=== PATIENT | female | born 1960 | race Caucasian/White ===

== ENCOUNTER 2017-03-09 19:01 | Inpatient (IN) ==
[2017-03-09] MEDS ORDERED: 0.9 % Sodium Chloride 1,000 ML IVC ONE ×2 (19:21→20:12)
--- NOTE | 2017-03-09 19:30 | Emergency Department Note ---
Disposition Clinical Impression: DKA (diabetic ketoacidoses) Qualifiers: Diabetes mellitus type: type 1 Diabetes mellitus complication detail: without coma Qualified Code(s): E10.10 - Type 1 diabetes mellitus with ketoacidosis without coma Disposition: Admitted As Inpatient Condition: Good Referrals: Sushil Mccrary DO [Primary Care Provider] - Forms: ED Satisfaction Letter General Adult HPI - General Chief complaint: ED Nausea/Vomiting/Diarrhea Stated complaint: hyperglycemia Time Seen by Provider: 03/09/17 19:04 Source: EMS Mode of arrival: ambulatory Limitations: no limitations Nursing Notes Reviewed: Yes Vital Signs Reviewed: Yes - History of Present Illness HPI Narrative: Patient presents for evaluation of elevated blood sugars. She states she has had elevated blood sugars 2 days. She came in today after the development of nausea and vomiting. Nausea started earlier today; vomiting with no blood or bile present. Has had this in the past. Concern for DKA. Patient is a insulin -dependent diabetic with an insulin pump. She states the insulin pump has been functioning properly. Patient has not had fevers or chills or productive cough or urinary symptoms. Patient has not had chest pain. No specific etiology for elevated glucose found at this time. Will perform lab work checking for DKA and likely admission Pain Scale: 0 - Related Data Allergies Allergy/AdvReac Type Severity Reaction Status Date / Time codeine AdvReac Hypertensio Verified 03/09/17 20:37 n Review of Systems: CONSTITUTIONAL: elevated blood sugarNo weight loss, fever, chills, weakness or fatigue. HEENT: Eyes: No visual changes. Ears, Nose, Throat: No hearing loss, difficulty talking or unable to swallow. SKIN: No rash or itching. CARDIOVASCULAR: No chest pain, chest pressure or chest discomfort. No palpitations or edema. RESPIRATORY: No shortness of breath, cough or sputum. GASTROINTESTINAL: Nausea and vomiting GENITOURINARY: No burning on urination or hematuria. NEUROLOGICAL: No headache, dizziness, syncope, paralysis, ataxia, numbness or tingling in the extremities. No change in bowel or bladder control. MUSCULOSKELETAL: No muscle pain, back pain, joint pain or stiffness. 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 history - Social History Smoking Status: Current every day smoker Smokeless Tobacco Status: No Alcohol use: Reports: none Drug use: Reports: none Physical Exam General: Well appearing, nontoxic, no acute distress Head: Normocephalic Atraumatic Eyes: PERRL, EOMI ENT: Airway patent, no stridor Neck: supple, no meningismus Chest: Lungs clear to auscultation bilateral Cardiac: Regular rate and rhythm, no murmurs, rubs or gallops Abdomen: soft, nontender, nondistended; no guarding, rebound, or tenderness to percussion Musculoskeletal: Calves symmetric, nontender, no palpable cord Skin: No rash, normal skin tone Neuro: Alert and Oriented to person, place, and time; No focal deficit, CN 2-12 symmetric and intact - General Limitations: no limitations General appearance: alert, in no apparent distress Course - Reevaluation(s) Reevaluation #1: elevated glucose. acidosis. ketones and troponin pending. Insulin drip started. Potasium repacement started. Vital Signs Temperature 97.4 F L 03/09/17 19:04 Pulse Rate 108 03/09/17 19:04 Respiratory Rate 18 03/09/17 19:04 Blood Pressure 137/84 03/09/17 19:04 O2 Sat by Pulse Oximetry 96 03/09/17 19:04 Temperature 97.4 F L 03/09/17 19:04 Pulse Rate 107 03/09/17 20:45 Respiratory Rate 24 03/09/17 20:45 Blood Pressure 118/44 03/09/17 20:45 O2 Sat by Pulse Oximetry 100 03/09/17 20:45 Oxygen Delivery Oxygen Delivery Nasal Cannula Medical Decision Making - Medical Records Medical records reviewed: Yes I reviewed the patient's medical records. - Lab Data Lab results reviewed: Yes I reviewed the patient's lab results. Result diagrams: 03/09/17 19:48 03/09/17 19:48 - Radiology Data Radiology results reviewed: Yes I reviewed the patient's radiology results. - EKG Data EKG #1 EKG attestation: Yes I reviewed and interpreted this EKG. EKG results narrative: EKG shows sinus tachycardia with ventricular rate of 106. MD 162. QRS 77. QTC 394. Patient has no significant ST elevations or depressions. Patient's EKG unchanged from 07/05/13. Critical Care Time Critical Care Time: Yes Total Critical Care Time: 33 Attestation: Patient is acidotic, hyperglycemic, requiring fluid resuscitation and an insulin drip Attestation Statement - Attestation Attestation: DR Barry note: Patient was seen in conjunction with resident Dr. Portillo; please see her charting for complete documentation. I spent [id number] time with the patient and agree with the patient's treatment and disposition. Pt is in dka, but improved during her ER stay. She noted her visualized days ago but does not remember checking them in the last 4-5 days. States his third episode began last 13 years. Unclear if her insulin pump was working on a functioning as it was was to be 4 days ago. The admitted hospitalist and stabilized improved condition. Patient was notably acidotic. Admitted to the hospitalist at 9 PM
[2017-03-09 19:41] LABS: Bilirubin,Urine Negative (Negative); Blood,Urine Negative (Negative); Clarity,Urine Clear (Clear); Color,Urine Yellow (Yellow); Glucose,Urine (UA) >=1000 mg/dL (Normal); Ketones,Urine 80 mg/dL (Negative); Leukocyte Esterase,Urine Negative (Negative); Nitrite,Urine Negative (Negative); Protein,Urine Negative (Neg-Trace); Specific Gravity,Urine 1.028 (1.010-1.025); Urobilinogen,Urine Normal (Normal)
[2017-03-09 19:59] LABS: Basophils # 0.1 K/mcL (0.0-0.2); Basophils % 0.6 %; Hematocrit 35.7 % (35.3-44.9); Hemoglobin 12.3 g/dL (11.5-15.4); Immature Granulocytes % 0.7 % (0-4); Lymphocytes # 1.1 K/mcL (0.6-4.6); Lymphocytes % 5.1 %; Mean Corpuscular HGB Conc 34.5 g/dL (31.6-35.5); Mean Corpuscular Hemoglobin 31.6 pg (28.0-33.3); Mean Corpuscular Volume 91.8 fL (83.0-100.0); Mean Platelet Volume 9.1 fL (9.4-12.4); Monocytes # 0.9 K/mcL (0.0-1.3); Monocytes % 4.3 %; Neutrophils # 19.5 K/mcL (1.6-8.9); Platelet Count 446 K/mcL (140-400); Red Blood Count 3.89 M/mcL (3.82-4.97); Segmented Neutrophils % 89.3 %
[2017-03-09 20:07] LABS: VBG HCO3 9 mEq/L (21-27); VBG PCO2 29 mmHg (41-51); VBG PH 7.11 pH Units (7.32-7.42); VBG PO2 64 mmHg (25-50)
[2017-03-09] MEDS ORDERED: Ondansetron 4 MG/2 ML VIAL IVP ONE (20:12)
[2017-03-09 20:13] LABS: Alanine Aminotransferase 17 Units/L (0-55); Albumin/Globulin Ratio 0.8 (1.1-2.2); Alkaline Phosphatase 152 Units/L (38-126); Aspartate Amino Transferase 16 Units/L (5-34); BUN/Creatinine Ratio 17 (6-26); Bilirubin,Total 0.9 mg/dL (0.2-1.2); Blood Urea Nitrogen 27 mg/dL (7-20); Calcium 10.2 mg/dL (8.6-10.8); Chloride 89 mEq/L (98-109); Globulin 4.8 g/dL (2.4-3.5); Magnesium 2.2 mg/dL (1.6-2.6); Osmolality,Calculated 299 (280-300); Potassium 4.9 mEq/L (3.5-4.5); Sodium 123 mEq/L (136-145); Total Protein 8.8 g/dL (6.0-8.3); eGFR For African Americans 41 (> 60); eGFR For Non-African Americans 34 (> 60)
[2017-03-09] MEDS ORDERED: Ondansetron 4 MG/2 ML VIAL ONE (20:13)
[2017-03-09 20:16] LABS: Carbon Dioxide 8 mEq/L (19-29); Glucose 788 mg/dL (70-99)
[2017-03-09] MEDS ORDERED: *HR* Dextrose 50 % in Water (Syg) 50 ML SYRINGE IVP PRN ×3 (20:17→23:03)
[2017-03-09 20:30] LABS: Beta-Hydroxybutyric Acid > 2.00 mmol/L (0.02-0.27)
[2017-03-09] MEDS ORDERED: Insulin Human Regular 100 UNIT in 0.9 % Sodium Chloride 100 ML IVC SCH ×2 (20:30→23:15)
[2017-03-09 20:48] LABS: Thyroid Stimulating Hormone 0.594 mcIU/mL (0.350-4.840)
[2017-03-09] MEDS ORDERED: D5% in 0.45% NACL 1,000 ML IVC PRN ×2 (21:21→23:03)
[2017-03-09] MEDS ORDERED: Naloxone 0.4 MG/ML INJ IVP PRN (21:24)
[2017-03-09] MEDS ORDERED: Ondansetron 4 MG/2 ML VIAL IVP PRN (21:27)
[2017-03-09] MEDS ORDERED: 0.9 % Sodium Chloride 1,000 ML IVC SCH (21:30)
--- NOTE | 2017-03-09 21:32 | Internal Med History&Physical ---
Date of Encounter: 03/09/17 Time of Encounter: 21:29 Assessment and Plan (1) DKA (diabetic ketoacidoses) Current visit: Yes Status: Acute admit with IVF, bolus for volume depletion Insulin gtt with close CBG monitoring consult endocrine, senior health educator to check insulin pump and adjust insulin pump dose pending hospital course Qualifiers: Diabetes mellitus type: type 1 Diabetes mellitus complication detail: without coma Qualified Code(s): E10.10 - Type 1 diabetes mellitus with ketoacidosis without coma (2) HTN (hypertension), benign Current visit: Yes Status: Acute continue med (3) Hypothyroid Current visit: Yes Status: Acute continue synthroid Qualifiers: Hypothyroidism type: acquired Qualified Code(s): E03.9 - Hypothyroidism, unspecified Internal Medicine - H&P: HPI Chief complaint: High CBG, nausea, fatigue, generalized weakness, fast HR History of present illness: Ms. Lloyd is a 56 year old female IDDM who presents with DKA. She has been using insulin pump for the last 4 years or so and is established with endocrinology locally. She presents after having approx 30 hours of high CBG on her glucometer that is off the scale that is associatied with nausea/non -bloody emesis since 4 pm with prodromal fatigue, generalized weakness, fast HR in the last 24 hours. Her pump delivers around 35-30 U insulin q24 hours. She denies chills/fever/UTI/Respiratory symptoms. ekg reviewed by self with rate 106, NSR XR/XR chest 2V IMPRESSION: No acute cardiopulmonary abnormality. Past Med Surg Social Fam HX - Past Medical History Medical history: diabetes, hypertension Psychiatric history: depression - Past Surgical History Surgical History: no surgical history - Social History Smoking Status: Current every day smoker Smokeless Tobacco Status: No Alcohol use: none Drug use: none - Additional Family History Additional family history: HTN Internal Medicine - H&P: Meds Amitriptyline [Elavil] 25 mg PO DAILY 03/09/17 [History] Aspirin [Lo-Dose Aspirin EC] 81 mg PO DAILY 03/09/17 [History] Gabapentin [Neurontin] 600 mg PO TID 03/09/17 [History] Levothyroxine [Synthroid] 100 mcg PO QAM 03/09/17 [History] Lisinopril [Zestril] 20 mg PO DAILY 03/09/17 [History] Metoprolol Succinate 50 mg PO DAILY 03/09/17 [History] Pravastatin Sodium [Pravachol] 40 mg PO HS 03/09/17 [History] Subcutaneous Insulin Pump [T:Slim] 1 each MC AD 03/09/17 [History] amLODIPine [Norvasc] 5 mg PO DAILY 03/09/17 [History] 3 Allergy/AdvReac Type Severity Reaction Status Date / Time codeine AdvReac Hypertensio Verified 03/09/17 20:37 n All Systems PM: A 10-system review of systems was performed and is negative for pertinent findings except as documented above in the HPI. Review of systems: ROS 14 point review of systems reviewed as best as possible given presentation. Pertinent positive or negative as per HPI or otherwise reviewed as negative - Constitutional Vitals: Temp Pulse Resp BP Pulse Ox 97.4 F L 107 24 118/44 100 03/09/17 19:04 03/09/17 20:45 03/09/17 20:45 03/09/17 20:45 03/09/17 20:45 Exam: General - AAO x 3 Psych - Appropriate affect/speech. No agitation Eyes - SHYLA. Eye lids intact. No scleral icterus Neuro - No gross peripheral or central neuro deficits on inspection Heart - Sinus tachycardia. S1 and S2 present. No added HS/murmurs appreciated. No elevated JVD appreciated. Lung - Adequate air entry b/l, No crackles/wheezes appreciated GI - Soft, non-tender. No hepatosplenomegaly/ascites. BS+ - No CVA/suprapubic tenderness or palpable bladder distension Skin - Intact. No rash/petechiae/ecchymosis. Warm extremities Internal Med - H&P Results - Labs CBC & Chem 7: 03/09/17 19:48 03/09/17 19:48 Labs: Short CBC 03/09/17 Range/Units 19:48 WBC 21.8 H (4.3-11.1) K/mcL Hgb 12.3 (11.5-15.4) g/dL Hct 35.7 (35.3-44.9) % Plt Count 446 H (140-400) K/mcL Neutrophils # 19.5 H (1.6-8.9) K/mcL BMP 03/09/17 19:48 Sodium 123 L Potassium 4.9 H Chloride 89 L Carbon Dioxide 8 L* BUN 27 H Creatinine 1.58 H Glucose 788 H* Calcium 10.2 Cardiac Enzymes 03/09/17 Range/Units 19:48 Troponin I 0.00 (0-0.03) ng/mL Liver Function 03/09/17 Range/Units 19:48 Total Bilirubin 0.9 (0.2-1.2) mg/dL AST 16 (5-34) Units/L ALT 17 (0-55) Units/L Alkaline Phosphatase 152 H (38-126) Units/L Albumin 4.0 (3.5-5.0) g/dL Urine 03/09/17 Range/Units 19:27 Urine Color Yellow (Yellow) Urine Clarity Clear (Clear) Urine pH 6.0 (5.0-8.0) pH Units Ur Specific Warner 1.028 H (1.010-1.025) Urine Protein Negative (Neg-Trace) mg/dL Urine Glucose (UA) >=1000 H (Normal) mg/dL - ABG Interpretation ABG results: 03/09/17 20:01 VBG pH 7.11 L* VBG pCO2 29 L VBG pO2 64 H VBG HCO3 9 L - Impressions ITS Impressions Chest X-Ray 03/09/17 19:21 IMPRESSION: No acute cardiopulmonary abnormality. D/ / aG Colon / Ga Colon Interpreting Provider: Ga Colon
[2017-03-09] MEDS ORDERED: 0.9 % Sodium Chloride w KCl 20 MEQ/1,000 ML MLS IVC ONE (22:44)
[2017-03-09] MEDS: 0.9 % Sodium Chloride 1,000 ML IVC SCH ×2 (22:51→22:53)
[2017-03-09] MEDS ORDERED: Insulin Regular, Human 100 UNIT/ML IV PRN (23:03)
[2017-03-09] MEDS ORDERED: 0.45 % Sodium Chloride w/KCl 20 MEQ/1,000 ML MLS IVC PRN ×2 (23:15)
[2017-03-09] MEDS ORDERED: 0.9 % Sodium Chloride 1,000 ML IVC PRN ×2 (23:15)
[2017-03-10] MEDS: Insulin Human Regular 100 UNIT in 0.9 % Sodium Chloride 100 ML IVC SCH ×2 (00:20→07:50)
[2017-03-10] MEDS ORDERED: 0.9 % Sodium Chloride w KCl 20 MEQ/1,000 ML MLS IVC ONE (00:47)
[2017-03-10 00:53] LABS: BUN/Creatinine Ratio 20 (6-26); Blood Urea Nitrogen 22 mg/dL (7-20); Calcium 8.8 mg/dL (8.6-10.8); Carbon Dioxide 13 mEq/L (19-29); Glucose 349 mg/dL (70-99); Osmolality,Calculated 287 (280-300); Potassium 4.4 mEq/L (3.5-4.5); Sodium 130 mEq/L (136-145); eGFR For African Americans > 60 (> 60); eGFR For Non-African Americans 50 (> 60)
[2017-03-10 00:54] LABS: Chloride 105 mEq/L (98-109)
[2017-03-10] MEDS: D5% in 0.45% NACL w KCl 20 MEQ/1,000 ML MLS IVC PRN ×2 (04:01→07:57)
[2017-03-10 04:45] LABS: Basophils # 0.1 K/mcL (0.0-0.2); Basophils % 0.3 %; Hematocrit 27.6 % (35.3-44.9); Immature Granulocytes % 0.5 % (0-4); Lymphocytes # 2.9 K/mcL (0.6-4.6); Lymphocytes % 17.3 %; Mean Corpuscular HGB Conc 35.5 g/dL (31.6-35.5); Mean Corpuscular Hemoglobin 31.4 pg (28.0-33.3); Mean Corpuscular Volume 88.5 fL (83.0-100.0); Mean Platelet Volume 8.5 fL (9.4-12.4); Monocytes # 0.9 K/mcL (0.0-1.3); Monocytes % 5.6 %; Neutrophils # 12.7 K/mcL (1.6-8.9); Platelet Count 314 K/mcL (140-400); Red Blood Count 3.12 M/mcL (3.82-4.97); Red Cell Distribution Width 13.2 % (11.5-14.5); Segmented Neutrophils % 76.3 %
[2017-03-10 04:46] LABS: Hemoglobin 9.8 g/dL (11.5-15.4)
[2017-03-10 04:51] LABS: BUN/Creatinine Ratio 18 (6-26); Blood Urea Nitrogen 17 mg/dL (7-20); Calcium 8.6 mg/dL (8.6-10.8); Carbon Dioxide 17 mEq/L (19-29); Chloride 110 mEq/L (98-109); Glucose 149 mg/dL (70-99); Osmolality,Calculated 278 (280-300); Potassium 3.9 mEq/L (3.5-4.5); Sodium 132 mEq/L (136-145); eGFR For African Americans > 60 (> 60); eGFR For Non-African Americans > 60 (> 60)
[2017-03-10 04:55] LABS: Hemoglobin A1C 8.3 %
[2017-03-10] MEDS ORDERED: *HR* Enoxaparin 40 MG/0.4 ML SYRINGE SQ SCH (06:00)
[2017-03-10] MEDS ORDERED: Lisinopril 20 MG TABLET PO SCH (09:00)
[2017-03-10] MEDS ORDERED: Gabapentin 300 MG CAPSULE PO SCH (09:00)
[2017-03-10] MEDS ORDERED: amLODIPine 5 MG TABLET PO SCH (09:00)
[2017-03-10] MEDS ORDERED: Aspirin Enteric Coated 81 MG Tablet PO SCH (09:00)
[2017-03-10] MEDS ORDERED: Metoprolol XL (24 HR) Succ 50 MG TAB.ER.24H PO SCH (09:00)
[2017-03-10 09:18] LABS: Alanine Aminotransferase 11 Units/L (0-55); Albumin 2.9 g/dL (3.5-5.0); Albumin/Globulin Ratio 0.8 (1.1-2.2); Alkaline Phosphatase 99 Units/L (38-126); Aspartate Amino Transferase 18 Units/L (5-34); BUN/Creatinine Ratio 18 (6-26); Bilirubin,Total 0.4 mg/dL (0.2-1.2); Blood Urea Nitrogen 15 mg/dL (7-20); Calcium 8.8 mg/dL (8.6-10.8); Carbon Dioxide 18 mEq/L (19-29); Chloride 108 mEq/L (98-109); Globulin 3.8 g/dL (2.4-3.5); Glucose 101 mg/dL (70-99); Osmolality,Calculated 271 (280-300); Potassium 3.7 mEq/L (3.5-4.5); Sodium 130 mEq/L (136-145); Total Protein 6.7 g/dL (6.0-8.3); eGFR For African Americans > 60 (> 60); eGFR For Non-African Americans > 60 (> 60)
--- NOTE | 2017-03-10 09:33 | Internal Med Progress Note ---
Date of Encounter: 03/10/17 Time of Encounter: 09:15 - Assessment and plan (1) DKA (diabetic ketoacidoses) Current Visit: Yes Status: Acute Assessment and plan: Serum glucose this AM: 101 HgbA1c 8.3 (appears to be @ baseline) NPO Receiving IVF for volume repletion (20 mEQ KCl in D5-1/2NS @ 250mL/hr) Insulin gtt running (humulin in NS @ 0.29 unit/kg/hr) critical care educator and endocrinology consulted--recommendations appreciated Qualifiers: Diabetes mellitus type: type 1 Diabetes mellitus complication detail: without coma Qualified Code(s): E10.10 - Type 1 diabetes mellitus with ketoacidosis without coma (2) Leukocytosis Current Visit: Yes Status: Acute Assessment and plan: Afebrile, normotensive, slight tachycardia Reported nausea and vomiting on admission; denies urinary sx, productive cough, fever, 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, improved today at 12.7 11.20.17 CXR--negative for acute cardiopulmonary processes Monitor white count and neutrophils # on daily labs, clinical status Qualifiers: Leukocytosis type: other Qualified Code(s): D72.828 - Other elevated white blood cell count (3) Hypothyroid Current Visit: Yes Status: Acute Assessment and plan: Continue levothyroxine Qualifiers: Hypothyroidism type: acquired Qualified Code(s): E03.9 - Hypothyroidism, unspecified (4) HTN (hypertension), benign Current Visit: Yes Status: Acute Assessment and plan: 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 Patient feels much better than she did yesterday when she was admitted. She denies chest pain, tachycardia , dyspnea, coughing, wheezing, abdominal pain, nausea, vomiting, diarrhea. Patient has no complaints at this time. Would like to eat when possible. - Constitutional Vitals: Temp Pulse Resp BP Pulse Ox 98.3 F 100 18 113/55 97 03/10/17 06:45 03/10/17 06:45 03/10/17 06:45 03/10/17 06:45 03/10/17 06:45 General appearance: Present: A&O X 3, pleasant, no acute distress, answers questions appropriately Exam: non-toxic appearing - Head Head exam: Present: atraumatic, normocephalic - Eye Eye exam: Present: EOMI, normal appearance - Neck Neck exam general surgery: Present: full ROM, supple, trachea midline - Respiratory Respiratory exam: Present: CTAB. Absent: accessory muscle use, respiratory distress, wheezes - Cardiovascular Cardiovascular exam: Present: RRR, +S1, +S2. Absent: diastolic murmur, systolic murmur - GI/Abdominal GI/Abdominal exam: Present: diminished bowel sounds, soft. Absent: distended, rebound, tenderness - Extremities Exam Extremities exam: Present: normal inspection, warm. Absent: pedal edema Additional comments: DP pulses equal - Neurological Exam Neurological exam: Present: alert, oriented X3, no focal deficits Internal Medicine: Result - Labs CBC & Chem 7: 03/10/17 04:30 03/10/17 08:56 Labs: Short CBC 03/10/17 Range/Units 04:30 WBC 16.7 H (4.3-11.1) K/mcL Hgb 9.8 L D (11.5-15.4) g/dL Hct 27.6 L (35.3-44.9) % Plt Count 314 (140-400) K/mcL Neutrophils # 12.7 H (1.6-8.9) K/mcL BMP 03/10/17 03/10/17 03/10/17 00:32 04:30 08:56 Sodium 130 L D 132 L 130 L Potassium 4.4 3.9 3.7 Chloride 105 D 110 H 108 Carbon Dioxide 13 L 17 L 18 L BUN 22 H 17 15 Creatinine 1.12 H 0.92 0.83 Glucose 349 H 149 H 101 H Calcium 8.8 8.6 8.8 Liver Function 03/10/17 Range/Units 08:56 Total Bilirubin 0.4 (0.2-1.2) mg/dL AST 18 (5-34) Units/L ALT 11 (0-55) Units/L Alkaline Phosphatase 99 (38-126) Units/L Albumin 2.9 L D (3.5-5.0) g/dL Consult Discharge Plan - Plan Referrals: Sushil Mccrary DO [Primary Care Provider] -
[2017-03-10 11:22] VITALS: BP 92/56
--- NOTE | 2017-03-10 11:47 | Discharge Summary ---
<Gina Martins - Last Filed: 03/10/17 13:32> Date of Encounter: 03/10/17 Time of Encounter: 11:44 - Discharge Diagnosis (1) DKA (diabetic ketoacidoses) Priority: Primary Status: Resolved Comments: Patient's status improved sooner than anticipated and is stable for discharge Qualifiers: Diabetes mellitus type: type 1 Diabetes mellitus complication detail: without coma Qualified Code(s): E10.10 - Type 1 diabetes mellitus with ketoacidosis without coma (2) Leukocytosis Priority: Secondary Status: Acute Comments: Unknown significance, has improved Possibly due to viral illness Afebrile and asymptomatic Qualifiers: Leukocytosis type: other Qualified Code(s): D72.828 - Other elevated white blood cell count (3) Hypothyroid Priority: Secondary Status: Chronic Qualifiers: Hypothyroidism type: acquired Qualified Code(s): E03.9 - Hypothyroidism, unspecified (4) HTN (hypertension), benign Priority: Secondary Status: Chronic - Discharge Medications Home Medications: Amitriptyline [Elavil] 25 mg PO DAILY 03/09/17 [History] Aspirin [Lo-Dose Aspirin EC] 81 mg PO DAILY 03/09/17 [History] Gabapentin [Neurontin] 600 mg PO TID 03/09/17 [History] Levothyroxine [Synthroid] 100 mcg PO QAM 03/09/17 [History] Lisinopril [Zestril] 20 mg PO DAILY 03/09/17 [History] Metoprolol Succinate 50 mg PO DAILY 03/09/17 [History] Pravastatin Sodium [Pravachol] 40 mg PO HS 03/09/17 [History] Subcutaneous Insulin Pump [T:Slim] 1 each MC AD 03/09/17 [History] amLODIPine [Norvasc] 5 mg PO DAILY 03/09/17 [History] Allergies/Adverse Reactions: 3 Allergy/AdvReac Type Severity Reaction Status Date / Time codeine AdvReac Hypertensio Verified 03/09/17 20:37 n Date of admission: 03/09/17 21:31 Primary care physician: Sushil Mccrary 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 Patient feels much better than she did yesterday when she was admitted. She denies chest pain, tachycardia , dyspnea, coughing, wheezing, abdominal pain, nausea, vomiting, diarrhea. Patient has no complaints at this time. Would like to eat when possible. Hospital course: Ms. Lloyd is a 56 year old female with insulin-dependent diabetes who presented to the ED for evaluation of elevated blood glucose x2 days after developing nausea, vomiting, fatigue, generalized weakness, and tachycardia. Patient has used an insulin pump for approximately 4 years. Work up in the ED revealed the patient to be acidotic and hyperglycemic--blood glucose 788, VBG pH 7.11 on presentation. Patient quickly received an insulin drip and volume resuscitation with IV fluids. Chest xray negative for any acute cardiopulmonary processes. Urine was negative for signs of infection, but large amount of glucose and ketones were found in the urine. TSH was WNL and troponin was negative. Patient's HgbA1c was 8.3%. Over course of hospitalization, patient improved more rapidly than anticipated. On day of discharge, her blood glucose was 101, vital signs were stable, and she was determined to be stable for discharge home. - Time Spent with Patient Total time spent providing and/or coordinating discharge services: - Constitutional Vitals: Temp Pulse Resp BP Pulse Ox 97.9 F 90 16 92/56 97 03/10/17 11:16 03/10/17 11:16 03/10/17 11:16 03/10/17 11:16 03/10/17 11:16 General appearance: Present: A&O X 3, pleasant, no acute distress, answers questions appropriately - Head Head exam: Present: atraumatic, normocephalic - Eye Eye exam: Present: EOMI, normal appearance - Neck Neck exam general surgery: Present: full ROM, supple - Respiratory Respiratory exam: Present: CTAB. Absent: respiratory distress, wheezes - Cardiovascular Cardiovascular exam: Present: RRR, +S1, +S2. Absent: diastolic murmur, systolic murmur - GI/Abdominal GI/Abdominal exam: Present: diminished bowel sounds, soft. Absent: distended, rebound, tenderness - Extremities Exam Extremities exam: Present: warm. Absent: cyanotic, pedal edema Additional comments: DP pulses equal - Neurological Exam Neurological exam: Present: alert, oriented X3, no focal deficits <Yogesh Paniagua Berny - Last Filed: 03/10/17 15:18> Date of Encounter: 03/10/17 Date of admission: 03/09/17 21:31 Primary care physician: Sushil Salcedo [facility] course: Ms. Lloyd is a 56 year old female - Time Spent with Patient Total time spent providing and/or coordinating discharge services: - Constitutional Vitals: Temp Pulse Resp BP Pulse Ox 97.9 F 90 16 92/56 97 03/10/17 11:16 03/10/17 11:16 03/10/17 11:16 03/10/17 11:16 03/10/17 11:16 - Attending Attestation Unclear trigger of DKA episode, consider possible nonideal storage of insulin or needle/pump misplacement Noninfectious at identified. The patient improved sooner than expected and is stable to be discharged Time spent on this discharge: 40 minutes I examined this patient and my medical decision-making was reviewed with the Resident Physician. I agree with the documented findings, disposition and treatment plan as described except to the extent set forth below.
[2017-03-10] MEDS ORDERED: FLUARIX QUAD 2017-18 36MOS UP/PF 0.5 ML SYRINGE IM ONE (15:22)
--- NOTE | 2017-03-10 17:38 | Electrocardiograph Report ---
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
== END 2017-03-10 16:30 | disposition home or self-care (01) | DRG 420 ==
LOC: 2NNU 19:01 → EMEROO 19:01 → 2NNU 22:12
PROVIDERS: ADMIT Pediatrics; ATTEND Internal Medicine

== ENCOUNTER 2020-01-07 11:55 | Observation (INO) ==
[2020-01-07] MEDS ORDERED: 0.9 % Sodium Chloride 1,000 ML IVC ONE (12:16)
[2020-01-07 12:46] LABS: Basophils # 0.1 K/mcL (0.0-0.2); Basophils % 0.6 %; Eosinophils # 0.3 K/mcL (0.0-0.6); Eosinophils % 3.6 %; Hematocrit 26.9 % (35.3-44.9); Hemoglobin 8.7 g/dL (11.5-15.4); Immature Granulocytes % 0.9 % (0-4); Lymphocytes # 1.1 K/mcL (0.6-4.6); Lymphocytes % 13.2 %; Mean Corpuscular HGB Conc 32.3 g/dL (31.6-35.5); Mean Corpuscular Hemoglobin 27.2 pg (28.0-33.3); Mean Corpuscular Volume 84.1 fL (83.0-100.0); Mean Platelet Volume 9.5 fL (9.4-12.4); Monocytes % 11.9 %; Neutrophils # 5.6 K/mcL (1.6-8.9); Platelet Count 457 K/mcL (140-400); Red Cell Distribution Width 14.1 % (11.5-14.5); Segmented Neutrophils % 69.8 %
[2020-01-07 12:52] LABS: INR 1.4; Prothrombin Time 15.7 Seconds (9.4-12.1)
[2020-01-07 13:17] LABS: Alanine Aminotransferase 7 Units/L (7-52); Albumin 2.8 g/dL (3.5-5.7); Albumin/Globulin Ratio 0.6 (1.1-2.2); Alkaline Phosphatase 117 Units/L (34-104); Aspartate Amino Transferase 9 Units/L (13-39); BUN/Creatinine Ratio 9 (6-26); Bilirubin,Total 0.4 mg/dL (0.3-1.0); Blood Urea Nitrogen 8 mg/dL (8-23); Calcium 8.5 mg/dL (8.6-10.3); Carbon Dioxide 25 mEq/L (23-29); Chloride 85 mEq/L (98-107); Glucose 290 mg/dL (70-105); Osmolality,Calculated 255 (280-300); Potassium 3.2 mEq/L (3.5-5.1); Sodium 118 mEq/L (136-145); Total Protein 7.8 g/dL (6.4-8.9); Troponin I < 0.03 ng/mL (< 0.04); eGFR For African Americans > 60 (> 60); eGFR For Non-African Americans > 60 (> 60)
[2020-01-07 14:25] LABS: Bacteria,Urine Few per hpf (None-Few); Bilirubin,Urine Negative (Negative); Blood,Urine Negative (Negative); Clarity,Urine Clear (Clear); Color,Urine Light-Yellow (Yellow); Glucose,Urine (UA) >=1000 mg/dL (Normal); Ketones,Urine Negative (Negative); Leukocyte Esterase,Urine Trace (Negative); Nitrite,Urine Negative (Negative); PH,Urine 6.5 pH Units (5.0-8.0); Protein,Urine Negative (Neg-Trace); RBC,Urine 0-3 per hpf (0-3); Specific Gravity,Urine 1.006 (1.010-1.025); Squamous Epithelial Cell,Urine Few per hpf (None-Few); Urobilinogen,Urine Normal (Normal); WBC,Urine 0-3 per hpf (0-3)
[2020-01-07] MEDS ORDERED: cefTRIAXone 1,000 MG in 0.9 % Sodium Chloride Mini Bag 100 ML IVPB ONE (14:43)
[2020-01-07] MEDS ORDERED: Ondansetron 4 MG/2 ML VIAL IVP PRN (15:00)
[2020-01-07] MEDS ORDERED: Acetaminophen 325 MG TABLET PO PRN (15:00)
[2020-01-07] MEDS ORDERED: Naloxone 0.4 MG/ML INJ IVP PRN (15:00)
[2020-01-07] MEDS ORDERED: Perflutren Lipid Microsphere 1.3 ML in 0.9 % Sodium Chloride 8.7 ML IVP PRN (15:05)
[2020-01-07] MEDS: Nicotine 14 MG PATCH.TD24 TD SCH (15:40)
[2020-01-07] MEDS ORDERED: Potassium Chloride Elixir 20 MEQ/15 ML UDC PO ONE (16:04)
[2020-01-07 16:06] LABS: BUN/Creatinine Ratio 8 (6-26); Blood Urea Nitrogen 6 mg/dL (8-23); Carbon Dioxide 25 mEq/L (23-29); Chloride 92 mEq/L (98-107); Glucose 160 mg/dL (70-105); Osmolality,Calculated 257 (280-300); Potassium 3.3 mEq/L (3.5-5.1); Sodium 123 mEq/L (136-145); eGFR For African Americans > 60 (> 60); eGFR For Non-African Americans > 60 (> 60)
[2020-01-07 16:11] LABS: VBG HCO3 25 mEq/L (21-27); VBG PCO2 37 mmHg (41-51); VBG PH 7.45 pH Units (7.32-7.42); VBG PO2 176 mmHg (25-50)
[2020-01-07 18:12] LABS: Creatinine,Urine 38 mg/dL; Sodium, Urine 18.9 mEq/L
[2020-01-07 18:23] LABS: Amphetamine Screen,Urine Negative ng/mL (Cutoff=1000); Barbiturate Screen,Urine Negative ng/mL (Cutoff=200); Benzodiazepines Screen,Urine Negative ng/mL (Cutoff=200); Cannabinoid Screen,Urine Positive ng/mL (Cutoff = 50); Cocaine Screen,Urine Negative ng/mL (Cutoff= 300); Opiate Screen,Urine Negative ng/mL (Cutoff=300); Phencyclidine Screen,Urine Negative ng/mL (Cutoff=25)
[2020-01-07 20:31] LABS: BUN/Creatinine Ratio 8 (6-26); Blood Urea Nitrogen 6 mg/dL (8-23); Calcium 8.5 mg/dL (8.6-10.3); Carbon Dioxide 25 mEq/L (23-29); Chloride 90 mEq/L (98-107); Glucose 271 mg/dL (70-105); Osmolality,Calculated 261 (280-300); Potassium 3.2 mEq/L (3.5-5.1); Sodium 122 mEq/L (136-145); eGFR For African Americans > 60 (> 60); eGFR For Non-African Americans > 60 (> 60)
[2020-01-07] MEDS: Gabapentin 300 MG CAPSULE PO SCH (22:21)
[2020-01-07] MEDS: Folic Acid 1 MG TABLET PO SCH (23:25)
[2020-01-07] MEDS: Cyanocobalamin (B-12) 1,000 MCG TABLET PO SCH (23:25)
[2020-01-08 06:21] LABS: BUN/Creatinine Ratio 8 (6-26); Blood Urea Nitrogen 5 mg/dL (8-23); Calcium 8.2 mg/dL (8.6-10.3); Carbon Dioxide 26 mEq/L (23-29); Chloride 91 mEq/L (98-107); Glucose 261 mg/dL (70-105); Magnesium 1.7 mg/dL (1.6-2.6); Osmolality,Calculated 262 (280-300); Phosphorous 2.5 mg/dL (2.7-4.5); Potassium 3.2 mEq/L (3.5-5.1); Sodium 123 mEq/L (136-145); eGFR For African Americans > 60 (> 60); eGFR For Non-African Americans > 60 (> 60)
[2020-01-08] MEDS: Nicotine 14 MG PATCH.TD24 TD SCH (08:57)
[2020-01-08] MEDS: Gabapentin 300 MG CAPSULE PO SCH ×3 (08:57→22:06)
[2020-01-08] MEDS: Folic Acid 1 MG TABLET PO SCH (08:57)
[2020-01-08] MEDS: Cyanocobalamin (B-12) 1,000 MCG TABLET PO SCH (08:57)
[2020-01-08 09:16] LABS: Basophils # 0.1 K/mcL (0.0-0.2); Basophils % 0.9 %; Eosinophils # 0.8 K/mcL (0.0-0.6); Eosinophils % 10.7 %; Hematocrit 28.3 % (35.3-44.9); Hemoglobin 9.4 g/dL (11.5-15.4); Immature Granulocytes % 0.4 % (0-4); Lymphocytes # 1.6 K/mcL (0.6-4.6); Lymphocytes % 22.5 %; Mean Corpuscular HGB Conc 33.2 g/dL (31.6-35.5); Mean Corpuscular Hemoglobin 28.2 pg (28.0-33.3); Mean Platelet Volume 9.4 fL (9.4-12.4); Monocytes # 0.5 K/mcL (0.0-1.3); Monocytes % 7.4 %; Neutrophils # 4.1 K/mcL (1.6-8.9); Platelet Count 476 K/mcL (140-400); Red Blood Count 3.33 M/mcL (3.82-4.97); Segmented Neutrophils % 58.1 %
[2020-01-08 09:28] LABS: BUN/Creatinine Ratio 6 (6-26); Blood Urea Nitrogen 4 mg/dL (8-23); Calcium 8.8 mg/dL (8.6-10.3); Carbon Dioxide 26 mEq/L (23-29); Chloride 90 mEq/L (98-107); Glucose 192 mg/dL (70-105); Osmolality,Calculated 260 (280-300); Potassium 2.9 mEq/L (3.5-5.1); Sodium 124 mEq/L (136-145); eGFR For African Americans > 60 (> 60); eGFR For Non-African Americans > 60 (> 60)
[2020-01-08] MEDS ORDERED: 0.9 % Sodium Chloride 1,000 ML IVC SCH (12:00)
[2020-01-08] MEDS: Magnesium Oxide 400 MG TABLET PO SCH (12:37)
[2020-01-08 13:36] LABS: BUN/Creatinine Ratio 6 (6-26); Blood Urea Nitrogen 4 mg/dL (8-23); Calcium 8.8 mg/dL (8.6-10.3); Carbon Dioxide 27 mEq/L (23-29); Chloride 88 mEq/L (98-107); Glucose 218 mg/dL (70-105); Osmolality,Calculated 262 (280-300); Potassium 3.3 mEq/L (3.5-5.1); Sodium 124 mEq/L (136-145); eGFR For African Americans > 60 (> 60); eGFR For Non-African Americans > 60 (> 60)
[2020-01-08] MEDS ORDERED: D5% in Water 1,000 ML IVC PRN (15:01)
[2020-01-08] MEDS ORDERED: Dextrose Gel 15 GM/37.5 ML TUBE PO PRN ×2 (15:01)
[2020-01-08] MEDS ORDERED: *HR* Dextrose 50 % in Water (Vial) 50 ML VIAL IVP PRN (15:01)
[2020-01-08] MEDS: (Subcutaneous Insulin Pump [T:Slim] 1 EACH) SQ SCH (17:42)
[2020-01-08 18:23] LABS: BUN/Creatinine Ratio 6 (6-26); Blood Urea Nitrogen 3 mg/dL (8-23); Calcium 8.1 mg/dL (8.6-10.3); Carbon Dioxide 27 mEq/L (23-29); Chloride 91 mEq/L (98-107); Glucose 201 mg/dL (70-105); Osmolality,Calculated 258 (280-300); Potassium 3.8 mEq/L (3.5-5.1); Sodium 123 mEq/L (136-145); eGFR For African Americans > 60 (> 60); eGFR For Non-African Americans > 60 (> 60)
[2020-01-09 01:22] LABS: Basophils # 0.1 K/mcL (0.0-0.2); Basophils % 0.8 %; Eosinophils # 0.6 K/mcL (0.0-0.6); Eosinophils % 7.7 %; Hematocrit 26.1 % (35.3-44.9); Hemoglobin 8.3 g/dL (11.5-15.4); Immature Granulocytes % 0.3 % (0-4); Lymphocytes % 25.7 %; Mean Corpuscular HGB Conc 31.8 g/dL (31.6-35.5); Mean Corpuscular Hemoglobin 27.1 pg (28.0-33.3); Mean Corpuscular Volume 85.3 fL (83.0-100.0); Mean Platelet Volume 9.5 fL (9.4-12.4); Monocytes # 0.7 K/mcL (0.0-1.3); Monocytes % 8.6 %; Neutrophils # 4.5 K/mcL (1.6-8.9); Platelet Count 468 K/mcL (140-400); Red Blood Count 3.06 M/mcL (3.82-4.97); Red Cell Distribution Width 14.1 % (11.5-14.5); Segmented Neutrophils % 56.9 %; White Blood Count 7.8 K/mcL (4.3-11.1)
[2020-01-09 01:41] LABS: BUN/Creatinine Ratio 7 (6-26); Blood Urea Nitrogen 4 mg/dL (8-23); Calcium 8.3 mg/dL (8.6-10.3); Carbon Dioxide 25 mEq/L (23-29); Chloride 93 mEq/L (98-107); Glucose 99 mg/dL (70-105); Magnesium 1.8 mg/dL (1.6-2.6); Osmolality,Calculated 257 (280-300); Potassium 3.9 mEq/L (3.5-5.1); Sodium 125 mEq/L (136-145); eGFR For African Americans > 60 (> 60); eGFR For Non-African Americans > 60 (> 60)
[2020-01-09] MEDS: Nicotine 14 MG PATCH.TD24 TD SCH (07:53)
[2020-01-09] MEDS: Gabapentin 300 MG CAPSULE PO SCH ×3 (07:54→20:26)
[2020-01-09] MEDS: Cyanocobalamin (B-12) 1,000 MCG TABLET PO SCH (07:55)
[2020-01-09] MEDS: Magnesium Oxide 400 MG TABLET PO SCH (07:55)
[2020-01-09] MEDS: Folic Acid 1 MG TABLET PO SCH (07:55)
[2020-01-09] MEDS: (Subcutaneous Insulin Pump [T:Slim] 1 EACH) SQ SCH (14:42)
[2020-01-09] MEDS ORDERED: SODIUM CHLORIDE/NAHCO3/KCL/PEG 4,000 ML SOLN.RECON PO ONE (17:00)
[2020-01-10 05:02] LABS: Basophils # 0.1 K/mcL (0.0-0.2); Eosinophils # 0.9 K/mcL (0.0-0.6); Hematocrit 23.6 % (35.3-44.9); Hemoglobin 7.9 g/dL (11.5-15.4); Immature Granulocytes % 0.4 % (0-4); Lymphocytes # 1.9 K/mcL (0.6-4.6); Lymphocytes % 25.6 %; Mean Corpuscular HGB Conc 33.5 g/dL (31.6-35.5); Mean Corpuscular Hemoglobin 28.6 pg (28.0-33.3); Mean Corpuscular Volume 85.5 fL (83.0-100.0); Mean Platelet Volume 9.4 fL (9.4-12.4); Monocytes # 0.6 K/mcL (0.0-1.3); Monocytes % 8.1 %; Neutrophils # 3.9 K/mcL (1.6-8.9); Platelet Count 457 K/mcL (140-400); Red Blood Count 2.76 M/mcL (3.82-4.97); Red Cell Distribution Width 14.3 % (11.5-14.5); Segmented Neutrophils % 52.9 %; White Blood Count 7.3 K/mcL (4.3-11.1)
[2020-01-10 05:11] LABS: BUN/Creatinine Ratio 5 (6-26); Blood Urea Nitrogen 3 mg/dL (8-23); Calcium 8.5 mg/dL (8.6-10.3); Carbon Dioxide 24 mEq/L (23-29); Chloride 92 mEq/L (98-107); Glucose 218 mg/dL (70-105); Magnesium 1.7 mg/dL (1.6-2.6); Osmolality,Calculated 261 (280-300); Potassium 3.9 mEq/L (3.5-5.1); Sodium 124 mEq/L (136-145); eGFR For African Americans > 60 (> 60); eGFR For Non-African Americans > 60 (> 60)
[2020-01-10] MEDS ORDERED: Lidocaine -MPF 2% 2 ML VIAL ONE (08:41)
[2020-01-10] MEDS: Gabapentin 300 MG CAPSULE PO SCH ×2 (09:38→14:21)
[2020-01-10] MEDS: Folic Acid 1 MG TABLET PO SCH (09:38)
[2020-01-10] MEDS: Magnesium Oxide 400 MG TABLET PO SCH (09:38)
[2020-01-10] MEDS: Nicotine 14 MG PATCH.TD24 TD SCH (09:38)
[2020-01-10] MEDS: Cyanocobalamin (B-12) 1,000 MCG TABLET PO SCH (09:39)
[2020-01-10 10:31] VITALS: BP 117/68
[2020-01-10] MEDS ORDERED: FLU Vac QV 20-21 (6Month+)/PF 0.5 ML SYRINGE IM ONE (14:11)
== END 2020-01-10 15:09 | disposition home or self-care (01) ==
LOC: 3ANU 11:55 → EMEROOARM 11:55 → SUATTDRO 16:12 → 3ANU 18:01
PROVIDERS: ADMIT Pharmacist; ATTEND Internal Medicine
PROC: ENDOEBX (2020-01-10 10:10)

== ENCOUNTER 2020-02-25 21:37 | Inpatient (IN) ==
[~2020-02-25 21:37] MED LIST: *HR* Etomidate 20 MG/10 ML AMPUL IVP ONE; *HR* Rocuronium Bromide 50 MG/5 ML VIAL IVP ONE
[2020-02-25] MEDS ORDERED: 0.9 % Sodium Chloride 250 ML ONE (21:50)
[2020-02-25] MEDS ORDERED: *HR* Norepinephrine 4 MG/4 ML VIAL IVC ONE (21:50)
[2020-02-25] MEDS ORDERED: 0.9 % Sodium Chloride 1,000 ML IVC ONE ×2 (21:59)
[2020-02-25 22:04] LABS: Hemoglobin 7.5 g/dL (11.5-15.4); Mean Corpuscular Hemoglobin 27.4 pg (28.0-33.3); Monocytes % 2.6 %; Red Blood Count 2.74 M/mcL (3.82-4.97)
[2020-02-25 22:05] LABS: Basophils # 0.1 K/mcL (0.0-0.2); Basophils % 0.4 %; Eosinophils # 0.1 K/mcL (0.0-0.6); Eosinophils % 0.3 %; Hematocrit 27.7 % (35.3-44.9); Immature Granulocytes % 4.1 % (0-4); Lymphocytes # 2.2 K/mcL (0.6-4.6); Lymphocytes % 8.4 %; Mean Corpuscular HGB Conc 27.1 g/dL (31.6-35.5); Mean Corpuscular Volume 101.1 fL (83.0-100.0); Mean Platelet Volume 9.5 fL (9.4-12.4); Monocytes # 0.7 K/mcL (0.0-1.3); Neutrophils # 22.5 K/mcL (1.6-8.9); Platelet Count 697 K/mcL (140-400); Red Cell Distribution Width 15.6 % (11.5-14.5); Segmented Neutrophils % 84.2 %; White Blood Count 26.7 K/mcL (4.3-11.1)
[2020-02-25 22:08] LABS: INR 1.7
[2020-02-25 22:11] LABS: Activated Partial Thrombo Time 32.5 Seconds (26.0-36.0)
[2020-02-25] MEDS: Norepinephrine 4 MG/254 ML IV.SOLN IVC SCH (22:14)
[2020-02-25 22:20] LABS: Amphetamine Screen,Urine Negative ng/mL (Cutoff=1000); Barbiturate Screen,Urine Negative ng/mL (Cutoff=200); Benzodiazepines Screen,Urine Negative ng/mL (Cutoff=200); Cannabinoid Screen,Urine Negative ng/mL (Cutoff = 50); Cocaine Screen,Urine Negative ng/mL (Cutoff= 300); Opiate Screen,Urine Negative ng/mL (Cutoff=300); Phencyclidine Screen,Urine Negative ng/mL (Cutoff=25)
[2020-02-25 22:25] LABS: Bilirubin,Urine Negative (Negative); Blood,Urine Negative (Negative); Clarity,Urine Clear (Clear); Color,Urine Colorless (Yellow); Glucose,Urine (UA) >=1000 mg/dL (Normal); Ketones,Urine 60 mg/dL (Negative); Leukocyte Esterase,Urine Negative (Negative); Mucus,Urine Few per lpf (None-Few); Nitrite,Urine Negative (Negative); Protein,Urine Negative (Neg-Trace); Specific Gravity,Urine 1.021 (1.010-1.025); Urobilinogen,Urine Normal (Normal); WBC,Urine 0-3 per hpf (0-3)
[2020-02-25] MEDS ORDERED: Piperacillin/Tazobactam 3.375 GM in 0.9 % Sodium Chloride Mini Bag 100 ML IVPB ONE (22:30)
[2020-02-25 22:32] LABS: Acanthocytes 2+ (Not Present)
[2020-02-25] MEDS: EPINEPHrine 1 MG in D5% in Water 250 ML IVC SCH (22:43)
[2020-02-25] MEDS ORDERED: Piperacillin/Tazobactam 3.375 GM in Water for inj. (sterile) 20 ML IVP ONE (22:45)
[2020-02-25] MEDS: FentaNYL (PF) 1,000 MCG/100 ML IV.SOLN IVC SCH (22:51)
[2020-02-25 22:53] LABS: ABG Base Excess -18 mEq/L (-2 to 3); ABG HCO3 12 mEq/L (21-27); ABG Oxygen Saturation 100 % (95-98); ABG PCO2 46 mmHg (35-45); ABG PH 7.02 pH Units (7.32-7.45); ABG PO2 341 mmHg (85-104); ABG TCO2 13 mEq/L (20-26); Blood Gas Modality ASSIST CONTROL; Blood Gas VT 400 cc
[2020-02-25 22:57] LABS: Acetaminophen < 10 mcg/mL (10-20); Alanine Aminotransferase 10 Units/L (7-52); Albumin 2.6 g/dL (3.5-5.7); Albumin/Globulin Ratio 0.6 (1.1-2.2); Alkaline Phosphatase 115 Units/L (34-104); Aspartate Amino Transferase 30 Units/L (13-39); BUN/Creatinine Ratio 19 (6-26); Bilirubin,Direct 0.1 mg/dL (0.0-0.2); Bilirubin,Indirect 0.2 mg/dL (0.0-1.0); Bilirubin,Total 0.3 mg/dL (0.3-1.0); Blood Urea Nitrogen 36 mg/dL (8-23); Calcium 9.2 mg/dL (8.6-10.3); Carbon Dioxide 6 mEq/L (23-29); Chloride 81 mEq/L (98-107); Creatine Kinase 447 Units/L (30-223); Ethanol < 10 mg/dL (Less than 10); Globulin 4.7 g/dL (2.4-3.5); Osmolality,Calculated 329 (280-300); Potassium 5.7 mEq/L (3.5-5.1); Salicylate < 2.5 mg/dL (15.0-30.0); Sodium 119 mEq/L (136-145); Thyroid Stimulating Hormone 0.117 mcIU/mL (0.340-5.600); Total Protein 7.3 g/dL (6.4-8.9); Troponin I 2.45 ng/mL (< 0.04); eGFR For African Americans 33 (> 60); eGFR For Non-African Americans 28 (> 60)
[2020-02-25 22:58] LABS: Glucose 1408 mg/dL (70-105)
[2020-02-25] MEDS: Insulin Human Regular 100 UNIT in 0.9 % Sodium Chloride 100 ML IVC SCH (23:17)
[2020-02-25] MEDS ORDERED: D5% in Water 250 ML IV BAG IV ONE (23:47)
[2020-02-25] MEDS ORDERED: *HR* EPINEPHrine 1 MG/10 ML SYRINGE IVP ONE (23:47)
[2020-02-25] MEDS ORDERED: *HR* Atropine Sulfate 1 MG/10 ML SYRINGE IV ONE (23:47)
[2020-02-26] MEDS ORDERED: *HR* Heparin 5,000 UNIT/ML VIAL IVP ONE (01:09)
[2020-02-26] MEDS ORDERED: *HR* Heparin 5,000 UNIT/ML VIAL IVP PRN ×2 (01:09)
[2020-02-26] MEDS ORDERED: Heparin 25,000UNIT/250ML 1/2NS 25,000 UNIT/250 ML IV.SOLN IVC SCH (01:15)
[2020-02-26] MEDS: Norepinephrine 4 MG/254 ML IV.SOLN IVC SCH ×3 (01:21→06:11)
[2020-02-26 01:28] LABS: Calcium 8.4 mg/dL (8.6-10.3); Potassium 4.4 mEq/L (3.5-5.1)
[2020-02-26] MEDS ORDERED: 0.9 % Sodium Chloride w KCl 40 MEQ/1,000 ML MLS IVC SCH (01:45)
[2020-02-26] MEDS ORDERED: 0.9 % Sodium Chloride 1,000 ML IVC ONE (01:48)
[2020-02-26 02:10] LABS: Adenovirus Not Detected (Not Detect); Bordetella Pertussis Not Detected (Not Detect); Chlamydophila pneumoniae Not Detected (Not Detect); Coronavirus 229E Not Detected (Not Detect); Coronavirus HKU1 Not Detected (Not Detect); Coronavirus NL63 Not Detected (Not Detect); Coronavirus OC43 Not Detected (Not Detect); Human Metapneumovirus Not Detected (Not Detect); Human Rhinovirus/Enterovirus Not Detected (Not Detect); Influenza A Subtype 2009 H1 Not Detected (Not Detect); Influenza B Not Detected (Not Detect); Mycoplasma pneumoniae Not Detected (Not Detect); Parainfluenza Virus 1 Not Detected (Not Detect); Parainfluenza Virus 2 Not Detected (Not Detect); Parainfluenza Virus 3 Not Detected (Not Detect); Parainfluenza Virus 4 Not Detected (Not Detect); Respiratory Syncytial Virus Not Detected (Not Detect); SARS-CoV-2 Not Detected (Not Detect)
[2020-02-26] MEDS ORDERED: Naloxone 0.4 MG/ML INJ IVP PRN (02:57)
[2020-02-26] MEDS ORDERED: D5% in 0.45% NACL w KCl 20 MEQ/1,000 ML MLS IVC PRN (03:14)
[2020-02-26] MEDS ORDERED: D5% in 0.45% NACL 1,000 ML IVC PRN (03:14)
[2020-02-26] MEDS ORDERED: *HR* Dextrose 50 % in Water (Vial) 50 ML VIAL IVP PRN ×2 (03:14→18:02)
[2020-02-26 03:24] LABS: ABG Base Excess -16 mEq/L (-2 to 3); ABG HCO3 13 mEq/L (21-27); ABG Oxygen Saturation 94 % (95-98); ABG PCO2 46 mmHg (35-45); ABG PH 7.05 pH Units (7.32-7.45); ABG PO2 100 mmHg (85-104); ABG TCO2 14 mEq/L (20-26); Blood Gas Modality ASSIST CONTROL; Blood Gas VT 400 cc
[2020-02-26 03:46] LABS: Calcium 8.5 mg/dL (8.6-10.3); Magnesium 2.7 mg/dL (1.6-2.6); Potassium 4.6 mEq/L (3.5-5.1)
[2020-02-26] MEDS ORDERED: Artificial Tears SOLN 15 ML BOTTLE BOTH EYES PRN (03:50)
[2020-02-26] MEDS: EPINEPHrine 1 MG in D5% in Water 250 ML IVC SCH (03:55)
[2020-02-26] MEDS ORDERED: Vancomycin 1 EACH in 0.9 % Sodium Chloride 250 ML IVPB PRN (04:00)
[2020-02-26 04:19] LABS: Mean Platelet Volume 9.2 fL (9.4-12.4); Red Cell Distribution Width 15.3 % (11.5-14.5)
[2020-02-26] MEDS: Artificial Tears SOLN 15 ML BOTTLE BOTH EYES SCH ×6 (04:20→23:31)
[2020-02-26 04:21] LABS: Hematocrit 20.6 % (35.3-44.9); Hemoglobin 6.4 g/dL (11.5-15.4); Mean Corpuscular HGB Conc 31.1 g/dL (31.6-35.5); Mean Corpuscular Hemoglobin 27.8 pg (28.0-33.3); Mean Corpuscular Volume 89.6 fL (83.0-100.0); Platelet Count 646 K/mcL (140-400)
[2020-02-26] MEDS: 0.45 % Sodium Chloride w/KCl 20 MEQ/1,000 ML MLS IVC SCH ×2 (04:22→15:39)
[2020-02-26 04:27] LABS: Calcium 8.8 mg/dL (8.6-10.3); Magnesium 2.8 mg/dL (1.6-2.6); Phosphorous 5.4 mg/dL (2.7-4.5); Potassium 4.5 mEq/L (3.5-5.1)
[2020-02-26 04:28] LABS: Troponin I 3.21 ng/mL (< 0.04)
[2020-02-26] MEDS: Piperacillin/Tazobactam 3.375 GM in 0.9 % Sodium Chloride Mini Bag 100 ML IVPB SCH ×3 (04:39→22:20)
[2020-02-26 04:50] LABS: White Blood Count 37.8 K/mcL (4.3-11.1)
[2020-02-26 04:52] LABS: Lymphocytes # 3.8 K/mcL (0.6-4.6); Monocytes # 0.8 K/mcL (0.0-1.3); Neutrophils # 32.5 K/mcL (1.6-8.9); Platelet Estimate Increased (Normal)
[2020-02-26 04:54] LABS: Large Platelets Present (Not Present)
[2020-02-26 05:50] LABS: VBG Ionized Calcium 1.23 mmol/L (1.15-1.35)
[2020-02-26] MEDS ORDERED: Famotidine 20 MG/2 ML VIAL IVP SCH (06:00)
[2020-02-26 06:08] LABS: Albumin 2.3 g/dL (3.5-5.7); Albumin/Globulin Ratio 0.6 (1.1-2.2); Bilirubin,Direct 0.1 mg/dL (0.0-0.2); Bilirubin,Indirect 0.2 mg/dL (0.0-1.0); Bilirubin,Total 0.3 mg/dL (0.3-1.0); Globulin 3.9 g/dL (2.4-3.5); Total Protein 6.2 g/dL (6.4-8.9)
[2020-02-26 06:26] LABS: Triiodothyronine (T3) Free 2.45 pg/mL (2.50-3.90)
[2020-02-26 08:20] LABS: ABG Base Excess -4 mEq/L (-2 to 3); ABG HCO3 20 mEq/L (21-27); ABG Oxygen Saturation 97 % (95-98); ABG PCO2 34 mmHg (35-45); ABG PH 7.39 pH Units (7.32-7.45); ABG PO2 87 mmHg (85-104); ABG TCO2 22 mEq/L (20-26); Blood Gas Modality CPAP/PS; Blood Gas Pressure Support 12 cm H2O
[2020-02-26 08:30] LABS: Basophils # 0.1 K/mcL (0.0-0.2); Basophils % 0.2 %; Eosinophils % 0.1 %; Hematocrit 21.8 % (35.3-44.9); Hemoglobin 6.9 g/dL (11.5-15.4); Immature Granulocytes % 3.3 % (0-4); Lymphocytes # 2.6 K/mcL (0.6-4.6); Lymphocytes % 7.8 %; Mean Corpuscular HGB Conc 31.7 g/dL (31.6-35.5); Mean Corpuscular Hemoglobin 26.7 pg (28.0-33.3); Mean Corpuscular Volume 84.5 fL (83.0-100.0); Monocytes # 1.1 K/mcL (0.0-1.3); Monocytes % 3.3 %; Nucleated Red Blood Cells 0.1 /100 WBC (0); Platelet Count 613 K/mcL (140-400); Red Blood Count 2.58 M/mcL (3.82-4.97); Red Cell Distribution Width 15.2 % (11.5-14.5); Segmented Neutrophils % 85.3 %
[2020-02-26 08:40] LABS: White Blood Count 32.8 K/mcL (4.3-11.1)
[2020-02-26] MEDS: Chlorhexidine Rinse 15 ML MOUTHWASH MM SCH ×2 (08:42→19:58)
[2020-02-26 09:12] LABS: Estimated Average Glucose 232 mg/dl
[2020-02-26 09:54] LABS: Calcium 8.4 mg/dL (8.6-10.3); Magnesium 2.6 mg/dL (1.6-2.6); Phosphorous 2.8 mg/dL (2.7-4.5); Potassium 3.7 mEq/L (3.5-5.1)
[2020-02-26] MEDS ORDERED: Perflutren Lipid Microsphere 1.3 ML in 0.9 % Sodium Chloride 8.7 ML IVP PRN (11:09)
[2020-02-26 12:23] LABS: Hematocrit 20.4 % (35.3-44.9); Hemoglobin 6.7 g/dL (11.5-15.4)
[2020-02-26 12:27] LABS: VBG Ionized Calcium 1.21 mmol/L (1.15-1.35)
[2020-02-26 12:43] LABS: Calcium 8.2 mg/dL (8.6-10.3); Magnesium 2.6 mg/dL (1.6-2.6); Phosphorous 1.5 mg/dL (2.7-4.5); Potassium 3.5 mEq/L (3.5-5.1)
[2020-02-26] MEDS: Insulin Human Regular 100 UNIT in 0.9 % Sodium Chloride 100 ML IVC SCH (15:00)
[2020-02-26] MEDS ORDERED: 0.9 % Sodium Chloride 250 ML ONE (15:26)
[2020-02-26] MEDS ORDERED: Dextrose Gel 15 GM/37.5 ML TUBE PO PRN ×2 (18:02)
[2020-02-26] MEDS ORDERED: D5% in Water 1,000 ML IVC PRN (18:02)
[2020-02-26] MEDS: Doxycycline 100 MG in 0.9 % Sodium Chloride Mini Bag 100 ML IVPB SCH (18:22)
[2020-02-26 19:13] LABS: Magnesium 2.4 mg/dL (1.6-2.6); Phosphorous 1.7 mg/dL (2.7-4.5); Potassium 3.6 mEq/L (3.5-5.1)
[2020-02-26 19:16] LABS: Troponin I 11.01 ng/mL (< 0.04)
[2020-02-26] MEDS: Insulin LISPRO 300 UNITS/3 ML VIAL SQ SCH ×3 (19:45→23:33)
[2020-02-26] MEDS: Famotidine 20 MG/2 ML VIAL IVP SCH (19:58)
[2020-02-26] MEDS: Insulin DETEMIR 100 UNIT/ML X5UNITS SQ SCH (20:25)
[2020-02-26 23:26] LABS: Vancomycin,Trough 11 mcg/mL (5-10)
[2020-02-26 23:31] LABS: Creatine Kinase > 20000 Units/L (30-223)
[2020-02-26 23:50] LABS: Basophils % 0.1 %; Eosinophils % 0.1 %; Hematocrit 28.7 % (35.3-44.9); Hemoglobin 9.6 g/dL (11.5-15.4); Immature Granulocytes % 0.9 % (0-4); Lymphocytes # 1.1 K/mcL (0.6-4.6); Lymphocytes % 6.2 %; Mean Corpuscular HGB Conc 33.4 g/dL (31.6-35.5); Mean Corpuscular Hemoglobin 28.2 pg (28.0-33.3); Mean Corpuscular Volume 84.2 fL (83.0-100.0); Mean Platelet Volume 8.9 fL (9.4-12.4); Monocytes # 1.2 K/mcL (0.0-1.3); Monocytes % 6.9 %; Neutrophils # 14.9 K/mcL (1.6-8.9); Platelet Count 359 K/mcL (140-400); Red Blood Count 3.41 M/mcL (3.82-4.97); Red Cell Distribution Width 15.5 % (11.5-14.5); Segmented Neutrophils % 85.8 %; White Blood Count 17.4 K/mcL (4.3-11.1)
[2020-02-26] MEDS: FentaNYL (PF) 1,000 MCG/100 ML IV.SOLN IVC SCH (23:59)
[2020-02-27 00:02] LABS: Calcium 7.7 mg/dL (8.6-10.3); Magnesium 2.4 mg/dL (1.6-2.6); Phosphorous 2.9 mg/dL (2.7-4.5); Potassium 4.7 mEq/L (3.5-5.1)
[2020-02-27] MEDS: FentaNYL (PF) 1,000 MCG/100 ML IV.SOLN IVC SCH ×2 (02:50→20:30)
[2020-02-27] MEDS: Insulin LISPRO 300 UNITS/3 ML VIAL SQ SCH ×6 (03:18→23:19)
[2020-02-27] MEDS: Artificial Tears SOLN 15 ML BOTTLE BOTH EYES SCH ×6 (03:18→23:18)
[2020-02-27 04:46] LABS: ABG Base Excess -5 mEq/L (-2 to 3); ABG HCO3 18 mEq/L (21-27); ABG Oxygen Saturation 95 % (95-98); ABG PCO2 26 mmHg (35-45); ABG PH 7.44 pH Units (7.32-7.45); ABG PO2 71 mmHg (85-104); ABG TCO2 18 mEq/L (20-26); Blood Gas Modality CPAP/PS; Blood Gas Pressure Support 12 cm H2O
[2020-02-27] MEDS: Doxycycline 100 MG in 0.9 % Sodium Chloride Mini Bag 100 ML IVPB SCH ×2 (05:45→18:01)
[2020-02-27] MEDS: Piperacillin/Tazobactam 3.375 GM in 0.9 % Sodium Chloride Mini Bag 100 ML IVPB SCH ×3 (05:45→22:15)
[2020-02-27 06:36] LABS: INR 1.7; Prothrombin Time 19.1 Seconds (9.4-12.1)
[2020-02-27 06:51] LABS: Basophils % 0.1 %; Hematocrit 28.9 % (35.3-44.9); Hemoglobin 9.7 g/dL (11.5-15.4); Immature Granulocytes % 1.2 % (0-4); Lymphocytes # 0.9 K/mcL (0.6-4.6); Mean Corpuscular HGB Conc 33.6 g/dL (31.6-35.5); Mean Corpuscular Hemoglobin 28.1 pg (28.0-33.3); Mean Corpuscular Volume 83.8 fL (83.0-100.0); Mean Platelet Volume 8.7 fL (9.4-12.4); Monocytes # 0.5 K/mcL (0.0-1.3); Monocytes % 3.5 %; Neutrophils # 12.8 K/mcL (1.6-8.9); Platelet Count 326 K/mcL (140-400); Red Blood Count 3.45 M/mcL (3.82-4.97); Red Cell Distribution Width 15.3 % (11.5-14.5); Segmented Neutrophils % 89.2 %; White Blood Count 14.3 K/mcL (4.3-11.1)
[2020-02-27 07:02] LABS: Albumin 2.2 g/dL (3.5-5.7); Albumin/Globulin Ratio 0.6 (1.1-2.2); Bilirubin,Direct 0.4 mg/dL (0.0-0.2); Bilirubin,Indirect 0.2 mg/dL (0.0-1.0); Bilirubin,Total 0.6 mg/dL (0.3-1.0); Globulin 3.6 g/dL (2.4-3.5); Magnesium 2.1 mg/dL (1.6-2.6); Phosphorous 2.3 mg/dL (2.7-4.5); Total Protein 5.8 g/dL (6.4-8.9); Troponin I 19.65 ng/mL (< 0.04)
[2020-02-27 07:03] LABS: Calcium 7.3 mg/dL (8.6-10.3); Potassium 4.6 mEq/L (3.5-5.1)
[2020-02-27] MEDS: Chlorhexidine Rinse 15 ML MOUTHWASH MM SCH ×2 (08:35→19:32)
[2020-02-27] MEDS: Insulin DETEMIR 100 UNIT/ML X5UNITS SQ SCH ×2 (08:37→19:32)
[2020-02-27 11:34] LABS: Sodium, Urine 76.6 mEq/L
[2020-02-27 12:51] LABS: Hematocrit 28.3 % (35.3-44.9); Hemoglobin 9.4 g/dL (11.5-15.4)
[2020-02-27 13:03] LABS: Uric Acid 10.4 mg/dL (2.3-7.6)
[2020-02-27 13:45] LABS: Creatine Kinase > 20000 Units/L (30-223)
[2020-02-27 13:54] LABS: Hepatitis C Virus Antibody Nonreactive (Nonreactive)
[2020-02-27 13:55] LABS: Hepatitis B Core IgM Nonreactive (Nonreactive)
[2020-02-27 13:57] LABS: Hepatitis A Antibody IgM Nonreactive (Nonreactive)
[2020-02-27 17:29] LABS: Folate 15.5 ng/mL (3.0-16.0)
[2020-02-27 17:44] LABS: Hepatitis B Surface Antigen Nonreactive (Nonreactive)
[2020-02-27] MEDS ORDERED: Thiamine (B-1) 200 MG, Folic Acid 1 MG, MVI, adult with vitamin K 10 ML in 0.9 % Sodi... IVPB SCH (18:00)
[2020-02-27] MEDS: Aspirin 81 MG TAB.CHEW GTUBE SCH (18:07)
[2020-02-27] MEDS: Famotidine 20 MG/2 ML VIAL IVP SCH (19:32)
[2020-02-27] MEDS: EPINEPHrine 1 MG in D5% in Water 250 ML IVC SCH (19:33)
[2020-02-27 20:17] LABS: Hematocrit 27.7 % (35.3-44.9); Hemoglobin 9.2 g/dL (11.5-15.4); Lymphocytes % 6.6 %; Mean Corpuscular HGB Conc 33.2 g/dL (31.6-35.5); Mean Corpuscular Hemoglobin 28.4 pg (28.0-33.3); Mean Corpuscular Volume 85.5 fL (83.0-100.0); Mean Platelet Volume 9.1 fL (9.4-12.4); Monocytes % 3.3 %; Platelet Count 260 K/mcL (140-400); Red Blood Count 3.24 M/mcL (3.82-4.97); Red Cell Distribution Width 15.9 % (11.5-14.5); Segmented Neutrophils % 87.9 %; White Blood Count 18.9 K/mcL (4.3-11.1)
[2020-02-27 20:18] LABS: Basophils % 0.2 %; Monocytes # 0.6 K/mcL (0.0-1.3); Neutrophils # 16.6 K/mcL (1.6-8.9); Nucleated Red Blood Cells 0.2 /100 WBC (0)
[2020-02-27 20:20] LABS: Lymphocytes # 1.3 K/mcL (0.6-4.6)
[2020-02-27 22:30] LABS: ABG Base Excess -8 mEq/L (-2 to 3); ABG HCO3 15 mEq/L (21-27); ABG Oxygen Saturation 88 % (95-98); ABG PCO2 23 mmHg (35-45); ABG PH 7.42 pH Units (7.32-7.45); ABG PO2 53 mmHg (85-104); ABG TCO2 16 mEq/L (20-26); Blood Gas VT 500 cc
[2020-02-28] MEDS: Artificial Tears SOLN 15 ML BOTTLE BOTH EYES SCH ×2 (03:27→07:43)
[2020-02-28] MEDS: Insulin LISPRO 300 UNITS/3 ML VIAL SQ SCH ×2 (03:32→08:02)
[2020-02-28 04:00] LABS: Hematocrit 27.9 % (35.3-44.9); Hemoglobin 8.9 g/dL (11.5-15.4); Mean Corpuscular HGB Conc 31.9 g/dL (31.6-35.5); Mean Corpuscular Hemoglobin 27.6 pg (28.0-33.3); Mean Corpuscular Volume 86.6 fL (83.0-100.0); Nucleated Red Blood Cells 0.2 /100 WBC (0); Platelet Count 216 K/mcL (140-400); Red Blood Count 3.22 M/mcL (3.82-4.97); Red Cell Distribution Width 16.1 % (11.5-14.5); White Blood Count 18.7 K/mcL (4.3-11.1)
[2020-02-28 04:20] LABS: Albumin 1.9 g/dL (3.5-5.7); Albumin/Globulin Ratio 0.6 (1.1-2.2); Bilirubin,Direct 0.4 mg/dL (0.0-0.2); Bilirubin,Indirect 0.3 mg/dL (0.0-1.0); Bilirubin,Total 0.7 mg/dL (0.3-1.0); Calcium 6.3 mg/dL (8.6-10.3); Globulin 3.4 g/dL (2.4-3.5); Potassium 5.3 mEq/L (3.5-5.1); Total Protein 5.3 g/dL (6.4-8.9)
[2020-02-28 04:38] LABS: Anisocytosis 1+ (Not Present)
[2020-02-28 04:40] LABS: Lymphocytes # 3.4 K/mcL (0.6-4.6); Neutrophils # 14.6 K/mcL (1.6-8.9); Platelet Estimate Normal (Normal)
[2020-02-28 05:00] LABS: ABG Base Excess -12 mEq/L (-2 to 3); ABG HCO3 14 mEq/L (21-27); ABG Oxygen Saturation 81 % (95-98); ABG PCO2 31 mmHg (35-45); ABG PH 7.26 pH Units (7.32-7.45); ABG PO2 51 mmHg (85-104); ABG TCO2 15 mEq/L (20-26); Blood Gas VT 500 cc
[2020-02-28] MEDS: Doxycycline 100 MG in 0.9 % Sodium Chloride Mini Bag 100 ML IVPB SCH (05:20)
[2020-02-28] MEDS: Piperacillin/Tazobactam 3.375 GM in 0.9 % Sodium Chloride Mini Bag 100 ML IVPB SCH (05:20)
[2020-02-28] MEDS: FentaNYL (PF) 1,000 MCG/100 ML IV.SOLN IVC SCH (05:57)
[2020-02-28] MEDS: Chlorhexidine Rinse 15 ML MOUTHWASH MM SCH (07:43)
[2020-02-28] MEDS: Aspirin 81 MG TAB.CHEW GTUBE SCH (08:03)
[2020-02-28] MEDS: Insulin DETEMIR 100 UNIT/ML X5UNITS SQ SCH (08:03)
[2020-02-28] MEDS ORDERED: Lidocaine Viscous Oral Soln 15 ML SOLUTION ONE (08:12)
[2020-02-28] MEDS: 0.45 % Sodium Chloride w/KCl 20 MEQ/1,000 ML MLS IVC SCH (08:38)
[2020-02-28] MEDS: Norepinephrine 4 MG/254 ML IV.SOLN IVC SCH (10:07)
[2020-02-28 11:08] VITALS: BP 90/52
[2020-02-28] MEDS ORDERED: *HR* FentaNYL (PF) 100 MCG/2 ML VIAL IVP PRN (11:35)
[2020-02-28] MEDS ORDERED: *HR* LORazepam 2 MG/ML VIAL IVP PRN (11:37)
[2020-02-28] MEDS ORDERED: Atropine Sulfate 1% 40 DROP/2 ML BOTTLE SL PRN (11:38)
[2020-02-28] MEDS ORDERED: Haloperidol Lactate 5 MG/ML VIAL IVP PRN (11:38)
== END 2020-02-28 14:45 | disposition expired | DRG 871 ==
LOC: EMEROOARM 21:37 → ICNU 21:37 → OBSVTOIN 02-26 01:56 → ICNU 02-26 02:29
PROVIDERS: ADMIT Internal Medicine; ATTEND Internal Medicine